=== PATIENT | female | born 1985 | race Caucasian/White ===

== ENCOUNTER 2022-10-30 08:41 | Emergency (ER) | payer OTHER, SELFPAY ==
--- NOTE | ~2022-10-30 | CT_ITS ---
EXAMINATION: CT HEAD WITHOUT CONTRAST CLINICAL INFORMATION: Pain. COMPARISON: None TECHNIQUE: Contiguous axial imaging was performed from the skull base to vertex without intravenous administration of contrast. This CT examination was performed using dose optimization techniques as appropriate, variously including the following: *Automated exposure control *Adjustment of mA and/or kV according to patient size (this includes techniques or standardized protocols for targeted exams where dose is matched to indication/reason for exam; i.e. extremities or head) *Use of iterative reconstruction technique DLP: 706 mGy-cm FINDINGS: There is no evidence of acute intracranial hemorrhage or edematous territorial infarction. There is no abnormal attenuation within the brain parenchyma. Oliveira-white matter differentiation is preserved. The ventricles are normal in size and configuration. No evidence for obstructive hydrocephalus. No abnormal mass effect or midline shift. No extra-axial fluid collections. No acute soft tissue or osseous abnormalities. The mastoid air cells and paranasal sinuses are clear. CT/CT head/brain wo IV con IMPRESSION: No evidence of acute intracranial hemorrhage or edematous territorial infarction.
[2022-10-30 09:07] VITALS: BP 124/76; PULSE 98; RESP 16; TEMP 36.3; O2SAT 97; BMI 29.7
[2022-10-30 09:26] LABS: Basophils Percent Auto 0.4 % (0-2); Eosinophils Absolute Auto 0.3 X10*3/uL (0.0-0.4); Eosinophils Percent Auto 4.1 % (0-4); Hematocrit 40.1 % (37.0-47.0); Hemoglobin 12.6 g/dl (12.0-16.0); Imm Gran Abs Auto 0.02 X10*3/uL (0.00-0.03); Imm Gran Pct Auto 0.3 % (0.0-0.4); Lymphocytes Absolute Auto 2.7 X10*3/uL (1.2-4.9); MANUAL DIFF FLAG NO; Mean Corpuscular HGB Conc 31.4 g/dl (31.0-35.0); Mean Corpuscular Volume 86.1 fL (80.0-98.0); Mean Platelet Volume 9.5 fL (9.4-12.3); Monocytes Absolute Auto 0.4 X10*3/uL (0.1-1.2); Neutrophils Absolute Auto 3.9 x10*3/uL (2.0-8.3); Neutrophils Percent Auto 53.2 % (45-73); Platelet Count 311 X10*3/uL (160-400); Red Blood Count 4.66 X10*6/uL (4.20-5.50); White Blood Count 7.4 X10*3/uL (4.8-10.8)
[2022-10-30 09:44] LABS: Anion Gap 13 (12-20); Blood Urea Nitrogen 12 mg/dL (9-16); Calcium 8.9 mg/dL (8.4-10.2); Carbon Dioxide 24 mmol/L (22-29); Chloride 110 mmol/L (96-108); Creatinine Clr Calc Pharmacy 105.9; Estimated Glomerular Filt Rate > 60; Glucose Random 115 mg/dL (60-115); IDNOW Serial# BCCEAD1C; Influenza A Negative (Negative); Influenza B2 Negative (Negative); Potassium 4.2 mmol/L (3.3-5.1); Sodium 143 mmol/L (135-145)
[2022-10-30 09:45] LABS: COVID-19 Test Negative (Negative); IDNOW Serial# 16C4AD1C
[2022-10-30 12:00] VITALS: BP 120/75; PULSE 87; RESP 17; O2SAT 98
--- NOTE | 2022-10-30 12:33 | ED.HA ---
HPI - Headache General Chief Complaint: Headache Stated Complaint: Headache x3 weeks Time Seen by Provider: 10/30/22 12:21 Source: patient History of Present Illness HPI Narrative: Patient complaining of generalized headache for 3 weeks. She states it is waxing waning but it does not resolve. She has a long history of intermittent headaches but none of ever lasted 3 weeks. She has never seen a physician within acute headache and has never had imaging such as a CT scan or MRI. She has been taking [id number] Excedrin and ibuprofen with partial but temporary relief. Positive nausea but no vomiting. Mild neck discomfort over the last 4 days. No fevers or chills No precipitating factors such as injuries or illness. She did have COVID the beginning of August but states recover completely. The symptoms started after the 1st week in September. Patient states the pain started gradually and got worse over 3 day period. Family history of thromboembolic disease and cancer. No family history of aneurysms. Related Data Previous Rx's Medication Instructions Recorded metoclopramide HCl 10 mg tablet 10 mg PO Q6H PRN nausea and 10/30/22 vomiting #20 tabs Allergies Allergy/AdvReac Type Severity Reaction Status Date / Time No Known Allergies Allergy Verified 10/30/22 09:07 Review of Systems Constitutional: Comments: No fevers or chills Eyes: Comments: No blurred vision. Positive mild photophobia Cardiovascular: Comments: No chest pain Respiratory: Comments: No respiratory symptoms Gastrointestinal: Comments: Occasional nausea without vomiting. No abdominal pain or diarrhea Musculoskeletal: Comments: Mild neck discomfort Integumentary/Breasts: Comments: No rash Neurologic: Comments: Headache but no focal weakness PENDING SALE TO [facility] Past Medical History PENDING SALE TO [facility] Narrative: Smokes cigarettes daily. No significant alcohol use No other drug or marijuana use Social History Social History Advance Directives: No Advance Directives Information Provided: Yes Physical Exam Vital Signs: Vital Signs: Last Vital Signs Temp 97.4 F 10/30/22 09:07 Pulse 87 10/30/22 12:00 Resp 17 10/30/22 12:00 BP 120/75 10/30/22 12:00 Pulse Ox 98 10/30/22 12:00 O2 Del Method 10/30/22 12:00 BMI result Body Mass Index 29.7 Const: Other: Awake and alert. No acute distress HEENT: Other: Scalp nontender Eyes: Other: Pupils equal round reactive to light with mild photophobia. Funduscopic exam is normal. Extraocular muscles intact without nystagmus Neck: Other: Patient able to flex chin to chest without discomfort. She has mild tenderness and muscle tightness in the low C-spine area around T7 and to her trapezius muscles. She does not have tenderness or meningismus-like symptoms in the rest of the posterior neck Resp: Other: Clear and equal bilaterally without wheezes rales or rhonchi Cardio: Other: Regular rate and rhythm without murmurs rubs or gallops GI: Other: Soft nontender nondistended Skin: Other: Warm pink and dry without rash Neuro: Other: Nonfocal neuro exam with 5/5 upper and lower extremity strength. Patient is able ambulate without difficulty. Patient able balance on 1 leg bilaterally without difficulty. Medications Administered Discontinued Medications Generic Name Dose Route Start Last Admin Trade Name Freq PRN Reason Stop Dose Admin Sodium Chloride 1,000 mls @ 999 mls/hr 10/30/22 12:45 10/30/22 14:29 Ns IV 10/30/22 13:45 Infused .Q1H1M KATIE Infusion Ketorolac Tromethamine 30 mg 10/30/22 12:32 10/30/22 12:57 Ketorolac Tromethamine 15 Mg/Ml Vial IVPUSH 10/30/22 12:33 30 mg ONCE ONE Administration Metoclopramide HCl 10 mg 10/30/22 12:32 10/30/22 12:57 Metoclopramide Hcl 10 Mg/2 Ml Vial IVPUSH 10/30/22 12:33 10 mg ONCE ONE Administration Medical Decision Making Medical Decision Making [facility] Narrative: Patient with 3 weeks of headache not improving with [id number] medications. Differential includes migraine headache Tension headache Intracranial mass or hemorrhage Meningitis less likely Will order CT scan 12:44. Lab work is normal including CBC and chemistries. Respiratory panel negative for COVID-19, influenza IV Toradol, IV Reglan, IV normal saline ordered 14:31. Patient feeling better and requesting discharge home. CT scan is negative for acute hemorrhage or other abnormalities. Timeline and pattern are not typical for intracranial hemorrhage or aneurysmal bleeding. I think risk of lumbar puncture always risk of bleed. Stable for discharge home Lab Data 10/30/22 09:19 10/30/22 09:19 Labs: Lab Results 01/10/30/22 10/30/22 Range/Units 09:19 09:19 09:19 WBC 7.4 (4.8-10.8) X10*3/uL RBC 4.66 (4.20-5.50) X10*6/uL Hgb 12.6 (12.0-16.0) g/dl Hct 40.1 (37.0-47.0) % MCV 86.1 (80.0-98.0) fL MCH 27.0 (27.0-33.0) pg MCHC 31.4 (31.0-35.0) g/dl RDW 14.0 (11.0-16.0) % Plt Count 311 (160-400) X10*3/uL MPV 9.5 (9.4-12.3) fL Immature Gran % (Auto) 0.3 (0.0-0.4) % Neut % (Auto) 53.2 (45-73) % Lymph % (Auto) 36.0 (20-40) % Dewitt % (Auto) 6.0 (2-11) % Eos % (Auto) 4.1 H (0-4) % Baso % (Auto) 0.4 (0-2) % Lymph # (Auto) 2.7 (1.2-4.9) X10*3/uL Dewitt # (Auto) 0.4 (0.1-1.2) X10*3/uL Eos # (Auto) 0.3 (0.0-0.4) X10*3/uL Baso # (Auto) 0.0 (0.0-0.2) X10*3/uL Abs Immat Gran (auto) 0.02 (0.00-0.03) X10*3/uL Absolute Neuts (auto) 3.9 (2.0-8.3) x10*3/uL Absolute Nucleated RBC 0.000 (0.0-0.012) X10*3/uL Nucleated RBC % (auto) 0.0 (0.0-0.2) /100WBC Sodium 143 (135-145) mmol/L Potassium 4.2 (3.3-5.1) mmol/L Chloride 110 H (96-108) mmol/L Carbon Dioxide 24 (22-29) mmol/L Anion Gap 13 (12-20) BUN 12 (9-16) mg/dL Creatinine 0.94 (0.5-1.4) mg/dL Estim Creat Clear Calc 105.9 Estimated GFR > 60 Random Glucose 115 (60-115) mg/dL Calcium 8.9 (8.4-10.2) mg/dL COVID-19 (EMILEE) Negative (Negative) COVID-19 Clin Com See Note Influenza Type A (JANETTE) (Negative) Influenza Type B (JANETTE) (Negative) Influenza A & B Note 10/30/22 Range/Units 09:19 WBC (4.8-10.8) X10*3/uL RBC (4.20-5.50) X10*6/uL Hgb (12.0-16.0) g/dl Hct (37.0-47.0) % MCV (80.0-98.0) fL MCH (27.0-33.0) pg MCHC (31.0-35.0) g/dl RDW (11.0-16.0) % Plt Count (160-400) X10*3/uL MPV (9.4-12.3) fL Immature Gran % (Auto) (0.0-0.4) % Neut % (Auto) (45-73) % Lymph % (Auto) (20-40) % Dewitt % (Auto) (2-11) % Eos % (Auto) (0-4) % Baso % (Auto) (0-2) % Lymph # (Auto) (1.2-4.9) X10*3/uL Dewitt # (Auto) (0.1-1.2) X10*3/uL Eos # (Auto) (0.0-0.4) X10*3/uL Baso # (Auto) (0.0-0.2) X10*3/uL Abs Immat Gran (auto) (0.00-0.03) X10*3/uL Absolute Neuts (auto) (2.0-8.3) x10*3/uL Absolute Nucleated RBC (0.0-0.012) X10*3/uL Nucleated RBC % (auto) (0.0-0.2) /100WBC Sodium (135-145) mmol/L Potassium (3.3-5.1) mmol/L Chloride (96-108) mmol/L Carbon Dioxide (22-29) mmol/L Anion Gap (12-20) BUN (9-16) mg/dL Creatinine (0.5-1.4) mg/dL Estim Creat Clear Calc Estimated GFR Random Glucose (60-115) mg/dL Calcium (8.4-10.2) mg/dL COVID-19 (EMILEE) (Negative) COVID-19 Clin Com Influenza Type A (JANETTE) Negative (Negative) Influenza Type B (JANETTE) Negative (Negative) Influenza A & B Note See Note Discharge Plan Discharge Clinical Impression: Migraine Patient Disposition: Home, Self-Care Instructions: Migraine Headache (ED) Prescriptions: New metoclopramide HCl 10 mg tablet 10 mg PO Q6H PRN (Reason: nausea and vomiting) Qty: 20 0RF
[2022-10-30] MEDS: 0.9 % Sodium Chloride 1,000 ML 999 ML IV (12:57)
[2022-10-30] MEDS: Ketorolac Tromethamine 15 MG/ML VIAL 30 MG IVPUSH (12:57)
[2022-10-30] MEDS: Metoclopramide HCl 10 MG/2 ML VIAL IVPUSH (12:57)
== END 2022-10-30 14:40 | disposition home or self-care (01) ==
PROVIDERS: Emergency Provider Emergency Medicine; PCP Internal Medicine
DX: G43.909 Migraine, unspecified, not intractable, without status migrainosus (principal); Z20.822 Contact with and (suspected) exposure to COVID-19; Z79.899 Other long term (current) drug therapy
CPT/HCPCS: 70450; 80048; 85025; 87502; 87635; 96361; 96374; 96375; 99284; J1885; J2765